=== PATIENT | female | born 1985 | race Caucasian/White ===

== ENCOUNTER 2018-11-02 18:03 | Emergency (ER) | payer OTHER ==
[~2018-11-02] VITALS: Ht 162.6 cm; Wt 61.2 kg
[2018-11-02] MEDS ORDERED: IV NORMAL SALINE 1,000ML 1,000 ML IV SCH (18:54)
[2018-11-02] MEDS ORDERED: ONDANSETRON PF 4 MG/2 ML VIAL. IV ONE (19:00)
[2018-11-02] MEDS ORDERED: IOHEXOL 300 MG/ML 75 ML VIAL. IV ONE (19:15)
[2018-11-02 19:26] LABS: BASO % 1 % (0-3); EOS # 0.1 x10^3/uL (0.0-0.7); EOS % 2 % (0-3); HEMATOCRIT 37.2 % (36.0-47.0); HEMOGLOBIN 12.6 g/dL (12.0-15.5); LYMPH # 0.9 x10^3/uL (1.0-4.8); LYMPH % 19 % (24-48); MEAN CORPUSCULAR HEMOGLOBIN 30 pg (25-35); MEAN CORPUSCULAR HGB CONC 34 g/dL (31-37); MEAN CORPUSCULAR VOLUME 88 fL (79-100); MONO # 0.4 x10^3/uL (0.0-1.1); MONO % 8 % (0-9); NEUT # 3.7 x10^3uL (1.8-7.7); NEUT % 72 % (31-73); PLATELET COUNT 227 x10^3/uL (140-400); RED BLOOD COUNT 4.24 x10^6/uL (3.50-5.40); RED CELL DISTRIBUTION WIDTH 13.4 % (11.5-14.5); WHITE BLOOD COUNT 5.1 x10^3/uL (4.0-11.0)
[2018-11-02 19:53] LABS: ALBUMIN 3.5 g/dL (3.4-5.0); ALBUMIN/GLOBULIN RATIO 0.9 (1.0-1.7); CALCIUM 8.6 mg/dL (8.5-10.1); CREATININE 0.8 mg/dL (0.6-1.0); GFR 83.1; POTASSIUM 3.7 mmol/L (3.5-5.1); TOTAL BILIRUBIN 0.3 mg/dL (0.2-1.0); TOTAL PROTEIN 7.3 g/dL (6.4-8.2)
[2018-11-02 20:40] VITALS: BP 105/45
[2018-11-02 21:02] LABS: BILIRUBIN,URINE NEG (NEG); CLARITY,URINE HAZY; COLOR,URINE AMBER; GLUCOSE,URINE NEG (NEG)
[2018-11-02 21:03] LABS: BACTERIA,URINE FEW /HPF (0-FEW); NITRITE,URINE NEG (NEG); RBC,URINE >40 /HPF (0-2); SQUAMOUS EPITHELIAL CELL,UR MOD /LPF; UROBILINOGEN,URINE 0.2 mg/dL (0.2 mg/dL)
--- NOTE | 2018-11-02 21:21 | RAD ---
CT SCAN OF THE ABDOMEN AND PELVIS WITH IV CONTRAST. History: Right lower quadrant pain and epigastric pain nausea and diarrhea Comparison:None. Procedure: Contiguous axial images of the abdomen and pelvis were performed after the administration of 75 cc of Omni 300 IV contrast and without oral contrast. CT Abdomen with contrast: Findings: Liver: Unremarkable Spleen: Unremarkable Pancreas: Unremarkable Adrenal Glands: Unremarkable Kidneys: Unremarkable There is no mass or lymphadenopathy. There is no free air. There is no free fluid. The gallbladder appears normal. Impression: No acute findings. End Impression CT Pelvis with Contrast: Findings: The urinary bladder is collapsed and not well evaluated. Moderate wall thickening is felt to be Secondary to nondistention. A trace of free fluid in the pelvis could be physiologic. The uterus is retroflexed. The ovaries appear normal. The appendix is not well seen however there is a small caliber loop of bowel on the right which could be a normal appendix. There is no lymphadenopathy. Impression: No acute findings. PQRS Compliance Statement: One or more of the following individualized dose reduction techniques were utilized for this examination: 1. Automated exposure control 2. Adjustment of the mA and/or kV according to patient size 3. Use of iterative reconstruction technique Electronically signed by: Herman Barragan III, MD (11/02/2018 9:18 PM) [facility]
[2018-11-02] MEDS ORDERED: DICY10CA3 PO (21:36)
[2018-11-02] MEDS ORDERED: TRAM50TA PO (21:36)
[2018-11-02] MEDS ORDERED: ONDA4TAB7 PO (21:36)
--- NOTE | 2018-11-02 21:37 | PHYS DOC ---
Past History Past Medical History: No Pertinent History Past Surgical History: Tubal ligation, Other Alcohol Use: Occasionally Drug Use: None Adult General Chief Complaint Chief Complaint: ABDOMINAL PAIN HPI HPI Patient is a 33-year-old female who presents with complaint of right-sided abdominal pain that started on Friday. Patient states that pain has progressively worsened since that time. She describes the pain as sharp in nature. She states the pain is worsened with walking and with palpation. She states that she has had some nausea but no vomiting. She does indicate that her appetite has been decreased. She denies any fever. She states that nothing is improving her pain. Review of Systems Review of Systems Constitutional: Denies fever or chills [] Respiratory: Denies cough or shortness of breath [] Cardiovascular: No additional information not addressed in HPI [] GI: Positive abdominal pain with nausea. Denies vomiting or diarrhea [] : Denies dysuria or hematuria [] Neurologic: Denies headache, focal weakness or sensory changes [] All other systems were reviewed and found to be within normal limits, except as documented in this note. Current Medications Current Medications Current Medications Medications (Trade) Dose Ordered Sig/Gladys Start Time Stop Time Status Last Admin Dose Admin Fentanyl Citrate (Fentanyl 2ml Vial) 25 mcg PRN Q15MIN PRN 11/02/18 19:00 11/03/18 18:59 11/02/18 19:26 25 MCG Iohexol (Omnipaque 300 Mg/ml) 75 ml 1X ONCE 11/02/18 19:15 11/02/18 19:16 DC 11/02/18 20:52 75 ML Ondansetron HCl (Zofran) 4 mg 1X ONCE 11/02/18 19:00 11/02/18 19:01 DC 11/02/18 19:25 4 MG Sodium Chloride 1,000 ml @ 1,000 mls/hr Q1H 11/02/18 18:54 11/02/18 19:53 DC 11/02/18 19:25 1,000 MLS/HR Allergies Allergies Allergies Coded Allergies Type Severity Reaction Last Updated Verified No Known Drug Allergies 11/02/18 No Physical Exam Physical Exam Constitutional: Well developed, well nourished, no acute distress, non-toxic appearance. [] HENT: Normocephalic, atraumatic, bilateral external ears normal, oropharynx moist, no oral exudates, nose normal. [] Eyes: PERRLA, EOMI, conjunctiva normal, no discharge. [] Neck: Normal range of motion, no tenderness, supple, no stridor. [] Cardiovascular:Heart rate regular rhythm, no murmur [] Lungs & Thorax: Bilateral breath sounds clear to auscultation [] Abdomen: Bowel sounds normal, soft, with moderate tenderness to palpation in the right lower quadrant. [] Skin: Warm, dry, no erythema, no rash. [] Extremities: No tenderness, no cyanosis, no clubbing, ROM intact, no edema. [] Neurologic: Alert and oriented X 3, no focal deficits noted. [] Current Patient Data Vital Signs Vital Signs Date Time Temp Pulse Resp B/P (MAP) Pulse Ox O2 Delivery O2 Flow Rate FiO2 11/02/18 20:40 66 18 105/45 (65) 100 Room Air 11/02/18 18:30 98.2 Lab Results Laboratory Tests Test 11/02/18 19:15 11/02/18 20:45 11/02/18 20:46 White Blood Count 5.1 x10^3/uL (4.0-11.0) Red Blood Count 4.24 x10^6/uL (3.50-5.40) Hemoglobin 12.6 g/dL (12.0-15.5) Hematocrit 37.2 % (36.0-47.0) Mean Corpuscular Volume 88 fL (79-100) Mean Corpuscular Hemoglobin 30 pg (25-35) Mean Corpuscular Hemoglobin Concent 34 g/dL (31-37) Red Cell Distribution Width 13.4 % (11.5-14.5) Platelet Count 227 x10^3/uL (140-400) Neutrophils (%) (Auto) 72 % (31-73) Lymphocytes (%) (Auto) 19 % (24-48) L Monocytes (%) (Auto) 8 % (0-9) Eosinophils (%) (Auto) 2 % (0-3) Basophils (%) (Auto) 1 % (0-3) Neutrophils # (Auto) 3.7 x10^3uL (1.8-7.7) Lymphocytes # (Auto) 0.9 x10^3/uL (1.0-4.8) L Monocytes # (Auto) 0.4 x10^3/uL (0.0-1.1) Eosinophils # (Auto) 0.1 x10^3/uL (0.0-0.7) Basophils # (Auto) 0.0 x10^3/uL (0.0-0.2) Sodium Level 142 mmol/L (136-145) Potassium Level 3.7 mmol/L (3.5-5.1) Chloride Level 106 mmol/L (98-107) Carbon Dioxide Level 29 mmol/L (21-32) Anion Gap 7 (6-14) Blood Urea Nitrogen 16 mg/dL (7-20) Creatinine 0.8 mg/dL (0.6-1.0) Estimated GFR (Cockcroft-Gault) 83.1 BUN/Creatinine Ratio 20 (6-20) Glucose Level 83 mg/dL (70-99) Calcium Level 8.6 mg/dL (8.5-10.1) Total Bilirubin 0.3 mg/dL (0.2-1.0) Aspartate Amino Transferase (AST) 23 U/L (15-37) Alanine Aminotransferase (ALT) 31 U/L (14-59) Alkaline Phosphatase 113 U/L (46-116) Total Protein 7.3 g/dL (6.4-8.2) Albumin 3.5 g/dL (3.4-5.0) Albumin/Globulin Ratio 0.9 (1.0-1.7) L Lipase 92 U/L (73-393) Urine Collection Type Unknown Urine Color [place] Urine Clarity Hazy Urine pH 6.0 Urine Specific [place] >=1.030 Urine Protein 30 mg/dl (NEG-TRACE) Urine Glucose (UA) Neg mg/dL (NEG) Urine Ketones (Stick) Neg mg/dL (NEG) Urine Blood Large (NEG) Urine Nitrite Neg (NEG) Urine Bilirubin Neg (NEG) Urine Urobilinogen Dipstick 0.2 mg/dL (0.2 mg/dL) Urine Leukocyte Esterase Neg (NEG) Urine RBC >40 /HPF (0-2) Urine WBC 1-4 /HPF (0-4) Urine Squamous Epithelial Cells Mod /LPF Urine Bacteria Few /HPF (0-FEW) Urine Mucus Slight /LPF POC Urine HCG, Qualitative hcg negative (Negative) EKG EKG [] Radiology/Procedures Radiology/Procedures [] Impressions: PROCEDURE: CT ABD PELV W/ IV CONTRST ONLY CT SCAN OF THE ABDOMEN AND PELVIS WITH IV CONTRAST. History: Right lower quadrant pain and epigastric pain nausea and diarrhea Comparison:None. Procedure: Contiguous axial images of the abdomen and pelvis were performed after the administration of 75 cc of Omni 300 IV contrast and without oral contrast. CT Abdomen with contrast: Findings: Liver: Unremarkable Spleen: Unremarkable Pancreas: Unremarkable Adrenal Glands: Unremarkable Kidneys: Unremarkable There is no mass or lymphadenopathy. There is no free air. There is no free fluid. The gallbladder appears normal. Impression: No acute findings. End Impression CT Pelvis with Contrast: Findings: The urinary bladder is collapsed and not well evaluated. Moderate wall thickening is felt to be Secondary to nondistention. A trace of free fluid in the pelvis could be physiologic. The uterus is retroflexed. The ovaries appear normal. The appendix is not well seen however there is a small caliber loop of bowel on the right which could be a normal appendix. There is no lymphadenopathy. Impression: No acute findings. PQRS Compliance Statement: One or more of the following individualized dose reduction techniques were utilized for this examination: 1. Automated exposure control 2. Adjustment of the mA and/or kV according to patient size 3. Use of iterative reconstruction technique Electronically signed by: Meghan Barragan III, MD (11/02/2018 9:18 PM) [facility] DICTATED AND SIGNED BY: MEGHAN BARRAGAN III, MD DATE: 11/02/182117 Course & Med Decision Making Course & Med Decision Making Pertinent Labs and Imaging studies reviewed. (See chart for details) [] Dragon Disclaimer Dragon Disclaimer This electronic medical record was generated, in whole or in part, using a voice recognition dictation system. Departure Departure: Impression: Primary Impression: Right sided abdominal pain Disposition: HOME, SELF-CARE Condition: STABLE Referrals: PCP,NO (PCP) Patient Instructions: Abdominal Pain Scripts Dicyclomine Hcl (DICYCLOMINE HCL) 10 Mg Capsule 1 CAP PO PRN Q6HRS PRN for abdominal cramping, #20 CAP Prov: CELY CABRERA Jr. DO 11/02/18 Tramadol Hcl (TRAMADOL HCL) 50 Mg Tablet 50 MG PO PRN Q6HRS PRN for PAIN, #12 TAB Prov: CELY CABRERA Jr. DO 11/02/18 Ondansetron Hcl (ZOFRAN) 4 Mg Tablet 4 MG PO Q6HRS PRN for NAUSEA, #12 TAB Prov: CELY CABRERA Jr. DO 11/02/18 CELY CABRERA Jr. DO Nov 02, 2018 21:36
[2018-11-02] MEDS ORDERED: traMADol 50 MG TABLET ONE (21:48)
[2018-11-02] MEDS ORDERED: traMADol 50 MG TABLET PO ONE (22:00)
== END 2018-11-02 21:50 | disposition home or self-care (01) ==
LOC: ER 18:03
DX: R10.31 Right lower quadrant pain (principal); R10.13 Epigastric pain; R11.0 Nausea; R19.7 Diarrhea, unspecified; Z98.51 Tubal ligation status
CPT/HCPCS: 36415; 74177; 80053; 81001; 81025; 83690; 85025; 96361; 96374; 96375; 99285; J2405; J3010; Q9967; J7030

== ENCOUNTER → 2019-01-04 | Outpatient (CLI) | payer OTHER ==
[~2019-01-04] VITALS: Ht 162.6 cm; Wt 59.0 kg
[~2019-01-04] MED LIST: DICY10CA3 PO; ONDA4TAB7 PO; SINCALIDE 1.18 MCG in IV NORMAL SALINE 50ML 30 ML IV ONE; TRAM50TA PO
--- NOTE | 2019-01-04 12:26 | RAD ---
Limited abdomen ultrasound study right upper quadrant Clinical indications: Epigastric pain FINDINGS: No focal enlargement of the pancreas is seen. Fluid is seen within the stomach just inferior to the liver. The liver is normal otherwise with no focal hepatic mass and measures 17.2 cm in length which is normal. The gallbladder is normal without gallstones. The extra hepatic bile duct measures 2.1 mm in caliber which is normal. The length of the right kidney is 10.2 cm. No hydronephrosis or renal mass or perinephric fluid collection is seen on the right side. IMPRESSION: Unremarkable right upper quadrant abdomen ultrasound study. Electronically signed by: Gennaro Barrett MD (01/04/2019 12:24 PM) [id number]
--- NOTE | 2019-01-04 12:28 | RAD ---
HEPATOBILIARY SCAN WITH EJECTION FRACTION 01/04/2019 12:25 PM History: Epigastric pain, symptoms x2 months Procedure: Serial static images are obtained of the liver and biliary system in the frontal projection following IV administration of 5.5 mCi of Technetium 99m Choletec. After filling of the gallbladder, 1.18 mcg of sincalide were infused over 30 minutes and dynamic imaging continued over this period. The gallbladder ejection fraction was calculated. Findings: There is prompt hepatic clearance of tracer from the blood pool. There is homogeneous distribution throughout the liver. The gallbladder ejection fraction measures 53% (normal gallbladder EF is 35% or greater). IMPRESSION: 1. The cystic duct and common bile duct are patent. Negative for acute cholecystitis. 2. The gallbladder ejection fraction is within normal limits Electronically signed by: Jluis Huffman MD (01/04/2019 12:26 PM) [id number]
== END | disposition home or self-care (01) ==
LOC: US 09:00
PROVIDERS: ATTEND Internal Medicine Gastroenterology
DX: R10.13 Epigastric pain (principal)
CPT/HCPCS: 76705; 78227; A9537; J2805